=== PATIENT | female | born 1990 | race African-American/Black ===

== ENCOUNTER 2024-09-20 11:05 | Emergency (ER) | payer OTHER ==
[~2024-09-20] VITALS: Ht 165.1 cm; Wt 55.0 kg
[2024-09-20 11:10] VITALS: O2SAT 98
[2024-09-20] MEDS: SODIUM CHLORIDE 0.9% 1,000 ML IV ONE (11:30)
[2024-09-20 12:03] LABS: BASOPHILS % 1.3 % (0.0-2.0); DIFFERENTIAL COMMENT 0; EOSINOPHILS % 2.8 % (0.0-5.0); HEMATOCRIT. 38.2 % (36.0-48.0); HEMOGLOBIN. 12.6 g/dL (12.0-16.0); LYMPHOCYTES % 37.2 % (20.0-50.0); MEAN CORPUSCULAR HEMOGLOBIN 33.5 pg (28.0-32.0); MEAN CORPUSCULAR HGB CONC 32.9 g/dL (31.0-37.0); MEAN CORPUSCULAR VOLUME 101.8 fL (81.0-99.0); MEAN PLATELET VOLUME 8.1 fl (7.4-10.4); MONOCYTES % 10.4 % (2.0-8.0); NEUTROPHILS % 48.3 % (40.0-76.0); PLATELET 241 x1000/uL (130-400); RED BLOOD CELL COUNT 3.75 mill/uL (4.2-5.4); RED CELL DISTRIBUTION WIDTH 14.3 % (11.6-14.6); WHITE BLOOD COUNT 2.9 x1000/uL (4.5-11.0)
[2024-09-20 12:04] LABS: CLARITY URINE CLEAR (CLEAR); COLOR URINE YELLOW (YELLOW); GLUCOSE URINE NEGATIVE (NEGATIVE); KETONES URINE NEGATIVE (NEGATIVE); LEUKOCYTE ESTERASE URINE NEGATIVE (NEGATIVE); NITRITE URINE NEGATIVE (NEGATIVE); OCCULT BLOOD URINE NEGATIVE (NEGATIVE); PROTEIN URINE NEGATIVE (NEGATIVE); SPECIFIC GRAVITY URINE 1.007 (1.005-1.030)
[2024-09-20 12:14] LABS: CHLORIDE 101 mEq/L (98-107); POTASSIUM 3.6 mEq/L (3.5-5.1); SODIUM 141 mEq/L (136-145)
[2024-09-20 12:15] LABS: CALCIUM 9.3 mg/dL (8.7-10.4); CARBON DIOXIDE 29 mEq/L (21-32); PROTHROMBIN TIME 11.1 sec (9.6-11.0)
[2024-09-20 12:17] LABS: HCG SCREEN NEGATIVE
[2024-09-20 12:20] LABS: CREATININE 0.6 mg/dL (0.6-1.0); GLUCOSE 98 mg/dL (70-105); TROPONIN I HIGH SENSITIVITY 5 ng/L (3.0-34); UREA NITROGEN BLOOD 6 mg/dL (9-23)
[2024-09-20] MEDS: LEVETIRACETAM 500MG PREMIX 100 ML IV ONE (13:05)
[2024-09-20 14:43] VITALS: BP 129/95; PULSE 87; RESP 15; TEMP 36.7; O2SAT 98
== END 2024-09-20 14:44 | disposition home or self-care (01) ==
LOC: ER 11:05
DX: R55 Syncope and collapse (principal); I10 Essential (primary) hypertension
CPT/HCPCS: 99285; 96365; 70450; 96361; 71045; 80048; 81003; 84703; 85025; 85610; 84484; 36415; 93005; J1953; J7030

== ENCOUNTER 2024-09-21 01:10 | Emergency (ER) | payer OTHER ==
[2024-09-21 01:12] VITALS: BP 175/110; PULSE 120; RESP 18; O2SAT 98
== END 2024-09-21 01:45 | disposition left against medical advice (07) ==
LOC: ER 01:10
DX: R56.9 Unspecified convulsions (principal); Z53.21 Procedure and treatment not carried out due to patient leaving prior to being seen by health care provider

== ENCOUNTER 2024-10-22 16:20 | Emergency (ER) | payer OTHER ==
[~2024-10-22] VITALS: Ht 167.6 cm; Wt 79.0 kg
[2024-10-22 16:30] VITALS: O2SAT 100
[2024-10-22 17:00] VITALS: TEMP 37.6
[2024-10-22] MEDS: LORAZEPAM 1MG TABLET PO ONE (17:30)
[2024-10-22 19:04] LABS: BASOPHILS % 0.9 % (0.0-2.0); DIFFERENTIAL COMMENT 0; EOSINOPHILS % 1.3 % (0.0-5.0); HEMATOCRIT. 35.8 % (36.0-48.0); HEMOGLOBIN. 11.7 g/dL (12.0-16.0); LYMPHOCYTES % 27.6 % (20.0-50.0); MEAN CORPUSCULAR HEMOGLOBIN 33.3 pg (28.0-32.0); MEAN CORPUSCULAR HGB CONC 32.7 g/dL (31.0-37.0); MEAN CORPUSCULAR VOLUME 101.7 fL (81.0-99.0); MEAN PLATELET VOLUME 7.6 fl (7.4-10.4); MONOCYTES % 7.6 % (2.0-8.0); NEUTROPHILS % 62.6 % (40.0-76.0); PLATELET 374 x1000/uL (130-400); RED BLOOD CELL COUNT 3.52 mill/uL (4.2-5.4); RED CELL DISTRIBUTION WIDTH 13.2 % (11.6-14.6); WHITE BLOOD COUNT 3.9 x1000/uL (4.5-11.0)
[2024-10-22 19:12] LABS: CHLORIDE 105 mEq/L (98-107); POTASSIUM 3.9 mEq/L (3.5-5.1); SODIUM 145 mEq/L (136-145)
[2024-10-22 19:13] LABS: CALCIUM 10.2 mg/dL (8.7-10.4); CARBON DIOXIDE 27 mEq/L (21-32)
[2024-10-22 19:18] LABS: CREATININE 0.8 mg/dL (0.6-1.0); GLUCOSE 90 mg/dL (70-105); UREA NITROGEN BLOOD 8 mg/dL (9-23)
[2024-10-22 19:19] LABS: TROPONIN I HIGH SENSITIVITY 4 ng/L (3.0-34)
[2024-10-22 19:39] VITALS: BP 128/84; PULSE 99; RESP 11; O2SAT 98
== END 2024-10-22 19:51 | disposition home or self-care (01) ==
LOC: ER 16:20
DX: R56.9 Unspecified convulsions (principal); R55 Syncope and collapse; E78.00 Pure hypercholesterolemia, unspecified; I10 Essential (primary) hypertension
CPT/HCPCS: 36415; 71045; 73070; 73560; 80048; 81025; 83880; 84484; 85025; 93005; 99285

== ENCOUNTER 2024-11-17 14:30 | Emergency (ER) | payer OTHER ==
[~2024-11-17] VITALS: Ht 167.6 cm; Wt 82.0 kg
[2024-11-17 14:33] VITALS: O2SAT 100
[2024-11-17] MEDS ORDERED: LORAZEPAM 2MG/ML INJ IV ONE (15:00)
[2024-11-17] MEDS: FOLIC ACID 1 MG, THIAMINE HCL 100 MG, MVI, ADULT NO.1 10 ML in DEXTROSE 5% WATER 1,000 ML IV ONE (15:15)
[2024-11-17] MEDS: LEVETIRACETAM 500MG PREMIX 100 ML IV ONE (15:39)
[2024-11-17] MEDS: SODIUM CHLORIDE 0.9% 1,000 ML IV ONE (15:40)
[2024-11-17] MEDS: LORAZEPAM 2MG/ML UD SYRINGE IV NR (15:50)
[2024-11-17 16:01] LABS: CHLORIDE 107 mEq/L (98-107); SODIUM 144 mEq/L (136-145)
[2024-11-17 16:02] LABS: BASOPHILS % 1.2 % (0.0-2.0); CALCIUM 9.2 mg/dL (8.7-10.4); CARBON DIOXIDE 28 mEq/L (21-32); EOSINOPHILS % 2.3 % (0.0-5.0); HEMATOCRIT. 37.7 % (36.0-48.0); HEMOGLOBIN. 12.6 g/dL (12.0-16.0); LYMPHOCYTES % 42.1 % (20.0-50.0); MEAN CORPUSCULAR HEMOGLOBIN 32.6 pg (28.0-32.0); MEAN CORPUSCULAR HGB CONC 33.3 g/dL (31.0-37.0); MEAN CORPUSCULAR VOLUME 97.9 fL (81.0-99.0); MEAN PLATELET VOLUME 7.9 fl (7.4-10.4); MONOCYTES % 5.5 % (2.0-8.0); NEUTROPHILS % 48.9 % (40.0-76.0); PLATELET 311 x1000/uL (130-400); RED BLOOD CELL COUNT 3.86 mill/uL (4.2-5.4); RED CELL DISTRIBUTION WIDTH 12.8 % (11.6-14.6); WHITE BLOOD COUNT 4.4 x1000/uL (4.5-11.0)
[2024-11-17 16:04] LABS: CLARITY URINE CLEAR (CLEAR); COLOR URINE YELLOW (YELLOW); GLUCOSE URINE NEGATIVE (NEGATIVE); KETONES URINE NEGATIVE (NEGATIVE); LEUKOCYTE ESTERASE URINE NEGATIVE (NEGATIVE); NITRITE URINE NEGATIVE (NEGATIVE); OCCULT BLOOD URINE NEGATIVE (NEGATIVE); PROTEIN URINE NEGATIVE (NEGATIVE); SPECIFIC GRAVITY URINE 1.005 (1.005-1.030); UROBILINOGEN URINE 0.2 E.U./dL (0.2-1.0)
[2024-11-17 16:07] LABS: CREATININE 0.7 mg/dL (0.6-1.0); ETHANOL BLOOD 300 mg/dL (<10); GLUCOSE 94 mg/dL (70-105); TROPONIN I HIGH SENSITIVITY 4 ng/L (3.0-34); UREA NITROGEN BLOOD < 5 mg/dL (9-23)
[2024-11-17 16:08] LABS: ALANINE AMINOTRANSFERASE 33 IU/L (10-49)
[2024-11-17 16:09] LABS: ACETAMINOPHEN < 2 ug/mL (10-30); ALBUMIN 4.8 g/dL (3.2-4.8); ASPARTATE AMINOTRANSFERASE 70 IU/L (<34); BILIRUBIN DIRECT 0.1 mg/dL (<=3.0); BILIRUBIN TOTAL 0.4 mg/dL (0.1-1.0); PROTEIN TOTAL 8.5 g/dL (6.0-8.3)
[2024-11-17 16:11] LABS: THYROID STIMULATING HORMONE 0.89 uIU/mL (0.55-4.78)
[2024-11-17 16:24] LABS: *AMPHETAMINES SCREEN URINE NEGATIVE (NEGATIVE); *BARBITURATES SCREEN URINE NEGATIVE (NEGATIVE); *BENZODIAZEPINES SCREEN URINE NEGATIVE (NEGATIVE); *COCAINE SCREEN URINE NEGATIVE (NEGATIVE); METHADONE URINE SCREEN NEGATIVE (NEGATIVE)
[2024-11-17 16:25] LABS: CANNABINOID URINE SCREEN NEGATIVE (NEGATIVE); ECSTASY MDMA SCREEN URINE NEGATIVE (NEGATIVE); OPIATES URINE SCREEN PRESUMPTIVE POSITIVE (NEGATIVE); PHENCYCLIDINE URINE SCREEN NEGATIVE (NEGATIVE)
[2024-11-17 16:36] LABS: HCG SCREEN NEGATIVE
[2024-11-17] MEDS: KCL 20MEQ/100ML PREMIX 100 ML IV ONE (17:15)
[2024-11-17 21:37] VITALS: BP 146/94; PULSE 99; RESP 18; TEMP 36.9; O2SAT 99
== END 2024-11-17 22:04 | disposition short-term general hospital (02) ==
LOC: ER 14:30
DX: R56.9 Unspecified convulsions (principal); E87.6 Hypokalemia; F10.129 Alcohol abuse with intoxication, unspecified; F10.139 Alcohol abuse with withdrawal, unspecified; I10 Essential (primary) hypertension; F14.90 Cocaine use, unspecified, uncomplicated; Y90.8 Blood alcohol level of 240 mg/100 ml or more
CPT/HCPCS: 80076; 80305; 80048; 81003; 80307; 80329; 80320; 84703; 83735; 84443; 85025; 84484; 36415; 71045; 70450; 93005; 96368; 96365; 96366; 96375; 99285; J1953; J3490 ×2; J2060; J3480; J3411; J7070; Z7610 ×2; 96367; A4606; G0480